=== PATIENT | female | born 1995 | race Caucasian/White ===

== ENCOUNTER → 2017-01-10 | Outpatient (CLI) | payer OTHER | END | disposition home or self-care (01) | LOC: LABWHC1 16:39 | PROVIDERS: ATTEND Physician Assistant | DX: Z82.49 Family history of ischemic heart disease and other diseases of the circulatory system (principal) | CPT/HCPCS: 36415 ==

== ENCOUNTER → 2017-01-23 | Outpatient (CLI) | payer OTHER ==
--- NOTE | 2017-01-24 12:38 | ECHOF ---
Referral Reason:Z82.49 Family history of ischemic heart disease MEASUREMENTS -------- HEIGHT: 162.6 cm WEIGHT: 81.6 kg BP: 129/60 RVIDd: 2.5 cm (< 3.3) IVSd: 1.0 cm (0.6 - 1.1) LVIDd: 4.4 cm (3.9 - 5.3) LVPWd: 1.0 cm (0.6 - 1.1) IVSs: 1.4 cm LVIDs: 2.6 cm LVPWs: 1.6 cm LA Diam: 3.1 cm (2.7 - 3.8) Ao Diam: 2.8 cm (2.0 - 3.7) AV Cusp: 2.2 cm (1.5 - 2.6) MV EXCURSION: 13.818 mm (> 18.000) MV EF SLOPE: 141 mm/s (70 - 150) EPSS: 0.3 cm MV E Keith: 1.25 m/s MV DecT: 248 ms MV A Keith: 0.50 m/s MV E/A Ratio: 2.49 FINDINGS -------- Sinus rhythm. This was a technically good study. The left ventricular size is normal. Left ventricular wall thickness is normal. Overall left ventricular systolic function is normal with, an EF between 60 - 65 %. The right ventricle is normal in size. The left atrial size is normal. The right atrium is normal in size. The aortic valve is trileaflet and appears structurally normal. There is trace mitral regurgitation. Trace tricuspid regurgitation present. Trace/mild (physiologic) pulmonic regurgitation. The aortic root size is normal. Normal inferior vena cava with normal inspiratory collapse consistent with estimated right atrial pressure of 5 mmHg. There is no pericardial effusion. CONCLUSIONS -------- 1. Sinus rhythm. 2. There is trace mitral regurgitation. 3. Trace tricuspid regurgitation present. 4. Trace/mild (physiologic) pulmonic regurgitation. 5. The aortic root size is normal. 6. Normal inferior vena cava with normal inspiratory collapse consistent with estimated right atrial pressure of 5 mmHg. 7. There is no pericardial effusion. 8. This was a technically good study. 9. The left ventricular size is normal. 10. Left ventricular wall thickness is normal. 11. Overall left ventricular systolic function is normal with, an EF between 60 - 65 %. 12. The right ventricle is normal in size. 13. The left atrial size is normal. 14. The right atrium is normal in size. 15. The aortic valve is trileaflet and appears structurally normal. REPORT MANAGER: Deborah Espitia RDCS
== END | disposition home or self-care (01) ==
LOC: RADECHMAIN 16:26
PROVIDERS: ATTEND Family Medicine
DX: I37.1 Nonrheumatic pulmonary valve insufficiency (principal); Z82.49 Family history of ischemic heart disease and other diseases of the circulatory system
CPT/HCPCS: 93306

== ENCOUNTER → 2017-04-24 | Outpatient (CLI) | payer OTHER ==
--- NOTE | 2017-04-24 15:55 | US ---
EXAMINATION TYPE: US transvaginal DATE OF EXAM: 04/24/2017 COMPARISON: 2016 CLINICAL HISTORY: N92.1 Excessive and frequent menstruation with irr. Bleeding since 03/12/2017 TECHNIQUE: Transvaginal (TV) Date of LMP: 03/12/2017 EXAM MEASUREMENTS: Uterus: 6.0 x 2.9 x 3.1 cm Endometrial Stripe: 0.2 cm Right Ovary: 2.0 x 1.1 x 2.1 cm Left Ovary: 2.3 x 1.6 x 2.2 cm 1. Uterus: Anteverted wnl 2. Endometrium: wnl 3. Right Ovary: follicular cysts 4. Left Ovary: follicular cysts ,largest 0.7 x 1.1 x 0.8 cm Spectral, color and waveform doppler imaging shows good arterial and venous flow within the ovaries ; there is no evidence for ovarian torsion. 5. Bilateral Adnexa: wnl 6. Posterior cul-de-sac: wnl IMPRESSION: 1. No acute pelvic changes
== END | disposition home or self-care (01) ==
LOC: RADUSWWP 15:07
PROVIDERS: ATTEND Obstetrics & Gynecology
DX: N92.1 Excessive and frequent menstruation with irregular cycle (principal)
CPT/HCPCS: 76830; 93975

== ENCOUNTER → 2018-07-21 | Outpatient (CLI) | payer OTHER ==
--- NOTE | 2018-07-21 14:16 | USB ---
Reason for exam: clinical finding. Physical Findings: Nurse did not find any significant physical abnormalities on exam. US Breast RT Right complete breast ultrasound includes all four quadrants, the retroareolar region and axilla. Finding demonstrates no cystic or solid lesion seen. No suspicious sonographic finding. Scattered areas of dense fibroglandular tissue. These results were verbally communicated with the patient and result sheet given to the patient on 07/21/18. ASSESSMENT: Negative, BI-RAD 1 RECOMMENDATION: Routine screening mammogram of both breasts at age 40. (40 or sooner if clinically indicated) Manage patient on a clinical basis.
== END ==
LOC: RADMAMWWP 13:03
PROVIDERS: ATTEND Family Medicine
DX: N63.11 Unspecified lump in the right breast, upper outer quadrant (principal)

== ENCOUNTER 2018-09-20 15:55 | Emergency (ER) | payer OTHER ==
[2018-09-20 16:33] VITALS: BP 124/78; PULSE 66; RESP 18; TEMP 98.5
[2018-09-20] MEDS ORDERED: IBUPROFEN 600 MG TAB PO STA (17:36)
[2018-09-20] MEDS ORDERED: PENICILLIN VK 500MG STARTER 4 TAB BTL PO STA (17:36)
--- NOTE | 2018-09-20 17:41 | ED ---
ENT HPI - General Chief complaint: Dental/Oral Stated complaint: Dental pain Time Seen by Provider: 09/20/18 17:01 Source: patient Mode of arrival: ambulatory Limitations: no limitations - History of Present Illness Initial comments: 23-year-old female presenting with dental abscess. Patient states that one week prior she started with tooth pain around her back molar on the right. She states since then she has had drainage from it, and swelling to the side of her face. She denies any fevers chills, difficulty swallowing, difficulty breathing. Patient states she has a known dentist that she can follow-up with. She has no drug ALLERGIES. - Related Data Home Medications Medication Instructions Recorded Confirmed Albuterol Inhaler [Ventolin Hfa 2 puff INHALATION RT-Q6H PRN 01/18/16 04/22/16 Inhaler] Pnv,Calcium 72/Iron/Folic Acid 1 tab PO HS 04/03/16 04/22/16 [ Plus Tablet] Previous Rx's Medication Instructions Recorded Metoclopramide HCl [Reglan] 5 mg PO TID #10 tablet 04/22/16 HYDROcodone/APAP 5-325MG [Dearing 1 tab PO Q6HR PRN 3 Days #12 tab 09/20/18 5-325] Ibuprofen [Motrin] 600 mg PO Q6HR PRN #30 tab 09/20/18 Penicillin V Potassium [Pen Vee K] 500 mg PO QID #28 tablet 09/20/18 Allergies Allergy/AdvReac Type Severity Reaction Status Date / Time latex Allergy Rash/Hives Verified 09/20/18 16:33 Review of Systems ROS Statement: Those systems with pertinent positive or pertinent negative responses have been documented in the HPI. Review of Systems Constitutional: Denies fever, chills Eyes: Denies change in vision, Denies pain Ears, nose, mouth, throat: Denies headaches, Denies sore throat. Positive dental pain Cardiovascular: Denies chest pain. Denies palpitations Respiratory: Denies shortness of breath, Denies cough Gastrointestinal: Denies abdominal pain. Denies nausea, vomiting, diarrhea. Genitourinary: Denies hematuria, Denies infections Musculoskeletal: Denies pain, Denies swelling Integumentary: Denies rash Neurological: Denies headache, focal weakness, focal numbness Psychiatric: Denies anxiety, Denies depression Hematologic/Lymphatic: Denies easy bleeding or bruising ROS Other: All systems not noted in ROS Statement are negative. Past Medical History Past Medical History: Asthma History of Any Multi-Drug Resistant Organisms: None Reported Past Surgical History: No Surgical Hx Reported Additional Past Surgical History / Comment(s): colonoscopy Past Psychological History: No Psychological Hx Reported Smoking Status: Current every day smoker Past Alcohol Use History: Rare Past Drug Use History: None Reported, Marijuana General Exam - General Exam Comments Initial Comments: General: Awake, alert, No acute Distress HENT: Normocephalic. Atraumatic. Apical dental abscess that is open and draining around tooth #32. No post oropharyngeal swelling Eyes: PERRL. EOMI. No scleral icterus. No injected conjunctiva Neck: Full ROM Chest/Lungs: Clear to auscultation bilaterally. No wheezing, rhonchi, or rales Cardiac: Regular rate, rhythm. No murmurs or rubs Musculoskeletal: Full ROM Skin: Warm, dry, intact Neurologic: A/Ox3. Limitations: no limitations Course Vital Signs 09/20/18 16:30 Temperature 98.5 F Pulse Rate 66 Respiratory 18 Rate Blood Pressure 124/78 O2 Sat by Pulse 99 Oximetry Medical Decision Making - Medical Decision Making 23 yoF presenting with dental abscess. On initial exam the patient is awake, alert, and in NAD. VSS. Patient's abscess is already open and draining. She has a dentist she can call on Friday. She declined a work note. she was given PCN VK, Motrin, and Dearing for breakthrough pain. No further emergent workup indicated. The patient was given return to ED instructions. They were instructed to follow up with their primary care provider. Stable for discharge at this time. Disposition Clinical Impression: Dental abscess Disposition: HOME SELF-CARE Condition: Good Instructions (If sedation given, give patient instructions): Dental Abscess (ED) Additional Instructions: Do not drive or operate machinery while taking Dearing. Take the antibiotics until he finished them. Call your dentist on Friday Prescriptions: Ibuprofen [Motrin] 600 mg PO Q6HR PRN #30 tab PRN Reason: Pain HYDROcodone/APAP 5-325MG [Dearing 5-325] 1 tab PO Q6HR PRN 3 Days #12 tab PRN Reason: Pain Penicillin V Potassium [Pen Vee K] 500 mg PO QID #28 tablet Is patient prescribed a controlled substance at d/c from ED?: Yes When asked, does pt state using other controlled substances?: No If prescribed controlled substance>3 days was MAPS reviewed?: Prescribed <3 Days Referrals: Nicola Cheng DO [Primary Care Provider] - 1-2 days
== END 2018-09-20 18:03 | disposition home or self-care (01) ==
LOC: EC 15:55
DX: K04.7 Periapical abscess without sinus (principal); J45.909 Unspecified asthma, uncomplicated; F17.200 Nicotine dependence, unspecified, uncomplicated; Z91.040 Latex allergy status
CPT/HCPCS: 99282